=== PATIENT | female | born 1960 | race Two or more races ===

== ENCOUNTER 2025-01-29 17:41 | Emergency (ER) | payer MEDICAID, OTHER ==
[~2025-01-29] VITALS: Ht 160 cm; Wt 56.6 kg
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
[2025-01-29] MEDS ORDERED: METH-1181 PO (19:42)
[2025-01-29] MEDS ORDERED: METH4PAK PO (19:42)
[2025-01-29] MEDS: DexAMETHasone SOD PHOS 10MG/1ML VIAL INJ IM ONE (21:30)
[2025-01-29] MEDS: KETOROLAC TROMETH 60MG/2ML VIAL IM ONE (21:30)
[2025-01-29 21:37] VITALS: BP 142/74; PULSE 61; RESP 17; TEMP 97.8; O2SAT 96
== END 2025-01-29 21:51 | disposition home or self-care (01) ==
LOC: ER 17:41
DX: S13.4XXA Sprain of ligaments of cervical spine, initial encounter (principal); Z79.899 Other long term (current) drug therapy; V89.2XXA Person injured in unspecified motor-vehicle accident, traffic, initial encounter; Y93.89 Activity, other specified; Y92.488 Other paved roadways as the place of occurrence of the external cause; Y99.8 Other external cause status
CPT/HCPCS: 72125; 96372; 99285; J1100; J1885